=== PATIENT | male | born 1955 | race Caucasian/White ===

== ENCOUNTER → 2016-04-08 | Outpatient (CLI) | payer BC ==
[~2016-04-08] MED LIST: ACET325T96 PO; CHOL100027 PO; LPT40 PO; LSN/10125 PO; LVMIPEN SQ; METF1TAB53 PO; MULT-506 PO; OXYC-643 PO; WARF2TAB PO
--- NOTE | 2016-04-10 10:24 | DIAGNOSTIC IMAGING REPORT ---
LUMBAR SPINE 5 VIEWS HISTORY: LOW BACK PAIN COMPARISON: Lumbar spine 11/07/2013. FINDINGS: There is no fracture. Minimal dextroscoliosis of the lumbar spine. There is a right total hip arthroplasty. Mild osteoarthritis within the left hip. Degenerative changes within the bilateral sacral joints are again noted. 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 Large left lateral bridging osteophytes within the lumbar spine. Moderate right and severe left facet osteoarthritis at the L4-L5 and L5-S1 levels. Focal indentation along the superior endplates of the L1-L4 vertebral bodies remains unchanged. Moderate disc space narrowing at L3-L4. Severe disc space narrowing L4-L5 and L5-S1. There is mild disc space narrowing at L2-L3 and moderate disc space narrowing at L1-L2. This remains unchanged. There is 9 mm of anterolisthesis of L5 on S1. This is also unchanged. IMPRESSION: 1. No significant change compared to the prior study. 2. No acute fractures identified. 3. Stable grade II anterolisthesis of L5 on S1. 4. Advanced degenerative changes as described above. 5. Minimal dextroscoliosis. Electronically signed by: Lucas England M.D. 04/10/2016 10:22 AM Dictated Date/Time: 04/08/2016 5:50 PM
== END | disposition home or self-care (01) ==
LOC: C.RDSM 09:40
PROVIDERS: ATTEND Physical Medicine & Rehabilitation Sports Medicine
DX: M54.5 Low back pain (principal)

== ENCOUNTER → 2016-07-21 | Outpatient (CLI) | payer BC | END | disposition home or self-care (01) | LOC: C.RDSM 12:29 | PROVIDERS: ATTEND Physical Medicine & Rehabilitation Sports Medicine | DX: Z96.649 Presence of unspecified artificial hip joint (principal) ==

== ENCOUNTER → 2017-07-28 | Outpatient (CLI) | payer BC, OTHER ==
[~2017-07-28] MED LIST changes: +ACET-1693 PO; -ACET325T96 PO
== END | disposition home or self-care (01) ==
LOC: C.RDSM 13:55
PROVIDERS: ATTEND Physical Medicine & Rehabilitation Sports Medicine
DX: M16.0 Bilateral primary osteoarthritis of hip (principal); Z96.641 Presence of right artificial hip joint

== ENCOUNTER 2021-11-20 17:46 | Inpatient (IN) ==
--- NOTE | 2021-11-20 19:12 | XRay Report ---
XR chest 1V portable CLINICAL HISTORY: illness COMPARISON STUDY: Chest radiograph August 03, 2014. FINDINGS: Lung volumes are diminished. No pneumothorax or pleural effusion is present. There is mild cardiomegaly. Pulmonary vascular congestion is noted. No evidence for overt pulmonary edema. No conso lidation is identified. IMPRESSION: 1. Cardiomegaly with pulmonary vascular congestion. 2. Low lung volumes. No consolidation identified. ACT 112: Negative or not required by law. Electronically signed by: Shashi Moore M.D. 11/20/2021 7:11 PM
[2021-11-20 19:19] LABS: Basophils # (auto) 0.05 K/uL (0-0.2); Basophils % (auto) 0.5 %; Eosinophils # (auto) 0.37 K/uL (0-0.50); Hematocrit (blood only) 35.8 % (40.1-51.0); Hemoglobin 11.7 g/dl (14.0-18.0); Immature Granulocytes # (auto) 0.02 K/uL (0.00-0.02); Immature Granulocytes % (auto) 0.2 %; Lymphocytes # (auto) 1.66 K/uL (1.2-3.4); Lymphocytes % (auto) 17.9 %; Mean Corpuscular Hemoglobin 30.4 pg (25.0-34.0); Mean Corpuscular Hgb Conc 32.7 g/dL (32.0-36.0); Mean Platelet Volume 10.8 fL (9.4-12.4); Monocytes # (auto) 0.97 K/uL (0.24-0.82); Monocytes % (auto) 10.5 %; Neutrophils % (auto) 66.9 %; Platelet Count 248 K/uL (130-400); RDW Coefficient of Variation 13.4 % (11.5-14.5); RDW Standard Deviation 45.4 fL (36.4-46.3); Red Blood Count 3.85 M/uL (4.63-6.08); White Blood Count 9.27 K/ul (4.8-10.8)
[2021-11-20 19:38] LABS: Albumin Globulin Ratio 1.5 (0.9-2); Albumin Level 4.4 gm/dl (3.4-5.0); BUN Creatinine Ratio 25.4 (10-20); Bilirubin,Total 0.4 mg/dl (0.2-1.0); Calcium 9.2 mg/dl (8.5-10.1); Creatinine Clr Calc Pharmacy 34.4 ml/min; Est GFR (African American) 28.8 ml/min; Est GFR (Non-African American) 24.9 ml/min; Globulin 2.9 gm/dl (2.5-4.0); Potassium 5.2 mmol/L (3.5-5.1); Total Protein 7.3 gm/dl (6.0-8.3)
[2021-11-20] MEDS ORDERED: SODIUM CHLORIDE 0.9% 1000ML 1,000 ML IV ONE (20:38)
--- NOTE | 2021-11-20 20:50 | Emergency Department Note ---
Impression & Plan Acute kidney injury superimposed on CKD, Hyperkalemia ED Provider Note NAME: CHITRA PARKS AGE: 66 SEX: M : 1955 ARRIVES VIA: Walk-In INFORMANT: Patient, ED PROVIDER(S): Tim Hennessy DO CHIEF COMPLAINT: Elevated creatinine HPI: The patient is a 66-year-old male who presented to the emergency department for an evaluation of abnormal labs. The patient states he had routine labs done and was told to go to the emergency department because of elevated creatinine and elevated potassium. The patient denies having any fever. He has noticed some changes in his urine output. He denies having any back pain or abdominal pain. He denies having any abdominal distention or lower extremity swelling. The patient himself has had no significant changes to his medications recently. His blood sugar has been acceptable recently. The patient has been eating and drinking as usual. He is been compliant with his usual outpatient medications. ROS: See above HPI for pertinent positives & negatives. A total of 10 systems reviewed and were otherwise negative. PAST MEDICAL HISTORY: See Below PAST SURGICAL HISTORY: See Below FAMILY HISTORY: See Below SOCIAL HISTORY: See Below HOME MEDICATIONS: See Below ALLERGIES: See Below VITALS: See Below PHYSICAL EXAMINATION: GENERAL: Patient is awake alert in no acute distress patient is resting comfortably and showing no signs of anxiety EYES: The conjunctivae are clear. The pupils are round and reactive. EARS, NOSE, MOUTH AND THROAT: The nose is without any evidence of any deformity. NECK: The neck is nontender and supple. RESPIRATORY: Normal respiratory effort is noted there is no evidence of wheezing rhonchi or rales CARDIOVASCULAR: Regular rate and rhythm noted there no murmurs rubs or gallops normal S1 normal S2. GASTROINTESTINAL: The abdomen is soft. Abdomen is nontender. MUSCULOSKELETAL/EXTREMITIES: There is no evidence of gross deformity full range of motion is noted in the hips and shoulders. SKIN: Trace pedal edema was noted bilaterally. NEUROLOGIC: Patient is awake alert and oriented x3 MEDICAL DECISION MAKING: The patient is a 66-year-old male who presented to the emergency department for an evaluation of abnormal labs. The patient was found to have hyperkalemia with elevation in his creatinine. The patient does have a history of underlying renal insufficiency. He was treated with IV fluids in the emergency department. EKG did not show significant change from previous. I discussed patient's condition with the on-call [facility] hospitalist. They have agreed to evaluate the patient in the emergency department for further management disposition. Triage Nursing notes reviewed. Prior medical records reviewed Vital Signs: reviewed and remarkable for bradycardia. Differential diagnosis: Infection, dehydration, metabolic abnormality, hypo/hyperglycemia, electrolyte d isturbance, anemia, hypoxia, cardiac sources, intracerebral event, toxicologic, neurologic, as well as other pathologies. ER treatment provided: See below Diagnostics interpreted by me: ECG: EKG was obtained in the emergency department. My interpretation is sinus bradycardia 59 bpm. There is no ectopy. Right bundle branch block pattern was noted. This was compared to a tracing from August 03, 2014. No changes were noted. Cardiac Monitoring: An order was placed for continuous cardiac monitoring. The monitor shows a rate of 56 bpm with sinus bradycardia. Laboratory studies: As stated above and show below. Imaging studies: See below Consultation(s): I discussed this case with the on-call [facility] hospitalist. Past Med/Surg History Medical History CKD (chronic kidney disease), stage III Diabetes mellitus, type 2 Hyperlipidemia Hypertension Osteoarthritis Spinal stenosis Structural heart disease septal infarct, RBBB, LAD, sinus bradycardia on ECG 2021 and 2014 Surgical History History of colonoscopy History of total hip arthroplasty RT Hx of cataract extraction RIGHT. 02/29/2020. 2mg versed. no issues. 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 Beliefs That Will Affect Care: None Current Living Situation: Spouse Other Information That Helps Us Care for You: No Feels Safe at Home: Yes Safety Concerns: Feels Safe At This Time Assistive Devices: None Allergies Allergies Allergy/AdvReac Type Severity Reaction Status Date / Time No Known Allergies AdvReac Unknown Verified 03/07/20 06:19 Home Meds Home Medications Medication Instructions Recorded Confirmed amlodipine 10 mg tablet (Norvasc) 10 mg PO QAM 02/24/20 11/20/21 aspirin 325 mg tablet 325 mg PO QAM 02/24/20 11/20/21 atorvastatin 40 mg tablet 40 mg PO QAM 02/24/20 11/20/21 indapamide 2.5 mg tablet 2.5 mg PO QAM 02/24/20 11/20/21 insulin degludec 100 unit/mL 21 unit subcut QAM 02/24/20 11/20/21 subcutaneous solution (Tresiba U-100 Insulin) lisinopril 40 mg tablet 40 mg PO QAM 02/24/20 11/20/21 metformin 1,000 mg tablet 500 mg PO BID 02/24/20 11/20/21 multivitamin 1 tab PO QAM 02/24/20 11/20/21 terazosin 1 mg capsule 1 mg PO QAM 02/24/20 11/20/21 cholecalciferol (vitamin D3) 50 2,000 unit PO DAILY 11/20/21 11/20/21 mcg (2,000 unit) tablet (Vitamin D3) dulaglutide 1.5 mg/0.5 mL 1.5 mg subcut WK 11/20/21 11/20/21 subcutaneous pen injector (Trulicity) Results & Data (ED) Vital Signs Vital Signs - 24 hr 11/20/21 18:13 11/20/21 19:46 11/20/21 21:00 Temperature 36.4 C L Temperature Source Temporal Artery Scan Pulse Rate 70 Pulse Rate [Apical] 57 L 80 Pulse Rate from SpO2 Sensor Pulse Rhythm [Apical] Regular Regular Pulse Strength [Apical] Normal Normal Respiratory Rate 18 19 19 Respiratory Effort / Characteristics Non-Labored Spontaneous Non-Labored Non-Labored Respiratory Depth Normal Normal Normal Respiratory Pattern Regular Regular Regular Blood Pressure 114/62 Blood Pressure [Right Arm] 109/50 L Blood Pressure Mean 79 Blood Pressure Mean [Right Arm] 69 Blood Pressure Position Sitting Blood Pressure Position [Right Arm] Lying Lying Pulse Oximetry 92 94 99 Oxygen Delivery Method Room Air Room Air Room Air Sepsis Recent Fever Within 48 Hours No Sepsis New/Unexplained Change in Mental Status No Sepsis Action Taken by Nursing No Action Required 11/20/21:59 11/20/21 22:00 11/20/21 22:00 Temperature Temperature Source Pulse Rate 63 60 Pulse Rate [Apical] Pulse Rate from SpO2 Sensor 63 60 Pulse Rhythm [Apical] Pulse Strength [Apical] Respiratory Rate 22 17 Respiratory Effort / Characteristics Respiratory Depth Respiratory Pattern Blood Pressure 120/58 L Blood Pressure [Right Arm] Blood Pressure Mean 78 Blood Pressure Mean [Right Arm] Blood Pressure Position Blood Pressure Position [Right Arm] Pulse Oximetry 95 95 Oxygen Delivery Method Sepsis Recent Fever Within 48 Hours Sepsis New/Unexplained Change in Mental Status Sepsis Action Taken by [facility] Medications Current Medication List: was personally reviewed by me Laboratory Data Attestation: I reviewed the patient's lab results. Result diagrams: 11/21/21 06:32 11/21/21 06:32 Lab Results 11/20/21 11/20/21 11/20/21 Range/Units 19:05 19:05 20:19 WBC 9.27 (4.8-10.8) K/ul RBC 3.85 L (4.63-6.08) M/uL Hgb 11.7 L (14.0-18.0) g/dl Hct 35.8 L (40.1-51.0) % MCV 93.0 (80.0-100.0) fL MCH 30.4 (25.0-34.0) pg MCHC 32.7 (32.0-36.0) g/dL RDW Std Deviation 45.4 (36.4-46.3) fL RDW Coeff of Tuan 13.4 (11.5-14.5) % Plt Count 248 (130-400) K/uL MPV 10.8 (9.4-12.4) fL Immature Gran % (Auto) 0.2 % Neut % (Auto) 66.9 % Lymph % (Auto) 17.9 % [place] % (Auto) 10.5 % Eos % (Auto) 4.0 % Baso % (Auto) 0.5 % Neut # (Auto) 6.20 (1.4-6.5) K/uL Lymph # (Auto) 1.66 (1.2-3.4) K/uL [place] # (Auto) 0.97 H (0.24-0.82) K/uL Eos # (Auto) 0.37 (0-0.50) K/uL Baso # (Auto) 0.05 (0-0.2) K/uL Immature Gran # (Auto) 0.02 (0.00-0.02) K/uL Sodium 139 138 (136-145) mmol/L Potassium 5.2 H 5.1 (3.5-5.1) mmol/L Chloride 108 H 107 (98-107) mmol/L Carbon Dioxide 21 20 L (21-32) mmol/L Anion Gap 10 11 (3-11) BUN 65 H 67 H (6-23) mg/dl Creatinine 2.56 H 2.53 H (0.6-1.4) mg/dl Est Cr Clr Drug Dosing 34.4 34.8 ml/min Est GFR ( Amer) 28.8 29.3 ml/min Est GFR (Non-Af Amer) 24.9 25.2 ml/min BUN/Creatinine Ratio 25.4 H 26.5 H (10-20) Glucose 83 71 (70-99(Fasting)) mg/dl Calcium 9.2 9.2 (8.5-10.1) mg/dl Magnesium 2.2 (1.7-2.4) mg/dl Total Bilirubin 0.4 (0.2-1.0) mg/dl AST 27 (13-39) U/L ALT 19 (7-52) U/L Alkaline Phosphatase 77 (34-104) U/L Total Creatine Kinase 460 H (30-223) U/L Total Protein 7.3 (6.0-8.3) gm/dl Albumin 4.4 (3.4-5.0) gm/dl Globulin 2.9 (2.5-4.0) gm/dl Albumin/Globulin Ratio 1.5 (0.9-2) Urine Color Urine Appearance (Clear) Urine pH (4.5-7.5) Ur Specific Duff (1.000-1.030) Urine Protein (Negative) Urine Glucose (UA) (Negative) Urine Ketones (Negative) Urine Blood (Negative) Urine Nitrite (Negative) Urine Bilirubin (Negative) Urine Urobilinogen (Negative) Ur Leukocyte Esterase (Negative) SARS-CoV-2, RNA, NAAT (NEGATIVE) 11/20/21 11/20/21 Range/Units 21:28 22:25 WBC (4.8-10.8) K/ul RBC (4.63-6.08) M/uL Hgb (14.0-18.0) g/dl Hct (40.1-51.0) % MCV (80.0-100.0) fL MCH (25.0-34.0) pg MCHC (32.0-36.0) g/dL RDW Std Deviation (36.4-46.3) fL RDW Coeff of Tuan (11.5-14.5) % Plt Count (130-400) K/uL MPV (9.4-12.4) fL Immature Gran % (Auto) % Neut % (Auto) % Lymph % (Auto) % [place] % (Auto) % Eos % (Auto) % Baso % (Auto) % Neut # (Auto) (1.4-6.5) K/uL Lymph # (Auto) (1.2-3.4) K/uL [place] # (Auto) (0.24-0.82) K/uL Eos # (Auto) (0-0.50) K/uL Baso # (Auto) (0-0.2) K/uL Immature Gran # (Auto) (0.00-0.02) K/uL Sodium (136-145) mmol/L Potassium (3.5-5.1) mmol/L Chloride (98-107) mmol/L Carbon Dioxide (21-32) mmol/L Anion Gap (3-11) BUN (6-23) mg/dl Creatinine (0.6-1.4) mg/dl Est Cr Clr Drug Dosing ml/min Est GFR ( Amer) ml/min Est GFR (Non-Af Amer) ml/min BUN/Creatinine Ratio (10-20) Glucose (70-99(Fasting)) mg/dl Calcium (8.5-10.1) mg/dl Magnesium (1.7-2.4) mg/dl Total Bilirubin (0.2-1.0) mg/dl AST (13-39) U/L ALT (7-52) U/L Alkaline Phosphatase (34-104) U/L Total Creatine Kinase (30-223) U/L Total Protein (6.0-8.3) gm/dl Albumin (3.4-5.0) gm/dl Globulin (2.5-4.0) gm/dl Albumin/Globulin Ratio (0.9-2) Urine Color Yellow Urine Appearance Clear (Clear) Urine pH 5.0 (4.5-7.5) Ur Specific Duff 1.012 (1.000-1.030) Urine Protein Negative (Negative) Urine Glucose (UA) Negative (Negative) Urine Ketones Negative (Negative) Urine Blood Negative (Negative) Urine Nitrite Negative (Negative) Urine Bilirubin Negative (Negative) Urine Urobilinogen Negative (Negative) Ur Leukocyte Esterase Negative (Negative) SARS-CoV-2, RNA, NAAT NEGATIVE (NEGATIVE) Administered Medications Heparin Sodium (Porcine) (Heparin Sod 5,000 Unit/0.5 Ml Vial) 5,000 units SQ Q8 SOHAN Stop: 12/21/21 05:59 Last Admin: 11/21/21 06:13 Dose: 5,000 units Documented By: JUDY Insulin Aspart (Insulin Aspart Per Unit) 0 units SC ACHS SOHAN Stop: 12/21/21 01:11 Last Admin: 11/21/21 08:04 Dose: 1 units Documented By: MARYCRUZ Co-signed By: JOSE J Admin: 11/21/21 02:11 Dose: 1 units Documented By: JAMILAH Co-signed By: JUDITH Insulin Glargine (Lantus Per Unit Charge) 15 units SQ QAM SOHAN Stop: 12/21/21 08:59 Last Admin: 11/21/21 08:19 Dose: 15 units Documented By: MARYCRUZ Co-signed By: JOSE J Discontinued Medications Dextrose (Dextrose 50% 50 Ml Syringe) 50 ml IV NOW ONE Stop: 11/20/21 21:16 Last Admin: 11/20/21 21:38 Dose: 50 ml Documented By: GIANNA Sodium Chloride (Nss 1000ml) 1,000 mls @ 999 mls/hr IV .Q1H1M ONE Stop: 11/20/21 21:38 Last Infusion: 11/21/21 00:56 Dose: 0 mls/hr Documented By: Admin: 11/20/21 23:42 Dose: 999 mls/hr Documented By: JAMILAH Albumin Human (Albumin 25% 100 Ml) 25 gm in 100 mls @ 50 mls/hr IV ONE ONE Stop: 11/20/21 23:14 Last Infusion: 11/20/21 23:44 Dose: 0 mls/hr Documented By: Admin: 11/20/21 21:38 Dose: 50 mls/hr Documented By: GIANNA Insulin Human Regular 5 units/ (Syringe) 5 mls @ 30 mls/min IV NOW ONE Stop: 11/20/21 21:16 Last Admin: 11/20/21 21:38 Dose: 30 mls/min Documented By: GIANNA Co-signed By: CRISTÓBAL Albumin Human (Albumin 25% 100 Ml) 25 gm in 100 mls @ 50 mls/hr IV ONE ONE Stop: 11/21/21 03:42 Last Infusion: 11/21/21 04:07 Dose: 0 mls/hr Documented By: Admin: 11/21/21 02:07 Dose: 50 mls/hr Documented By: JAMILAH Imaging Data Radiologist's Impression: Chest X-Ray 11/20/21 18:16 XR chest 1V portable CLINICAL HISTORY: illness COMPARISON STUDY: Chest radiograph August 03, 2014. FINDINGS: Lung volumes are diminished. No pneumothorax or pleural effusion is p resent. There is mild cardiomegaly. Pulmonary vascular congestion is noted. No evidence for overt pulmonary edema. No consolidation is identified. IMPRESSION: 1. Cardiomegaly with pulmonary vascular congestion. 2. Low lung volumes. No consolidation identified. ACT 112: Negative or not required by law. Electronically signed by: Shashi Moore M.D. 11/20/2021 7:11 PM Discharge Plan Visit Data Chief Complaint: Abnormal Labs/Diagnostic Testing Stated Complaint: ABNORMAL LABS ED Provider: Tim Hennessy Discharge Problem: Acute kidney injury superimposed on CKD, Hyperkalemia Patient Disposition: Admitted As Inpatient Discharge Instructions Interventions: ED Discharge Assessment Last Done: 11/21/21 01:11
[2021-11-20] MEDS ORDERED: NovoLIN-R INSULIN PER UNIT CHARGE IV STA (20:56)
[2021-11-20 20:58] LABS: Magnesium 2.2 mg/dl (1.7-2.4)
[2021-11-20] MEDS ORDERED: ALBUMIN 25% 100 mL 25 GM/100 ML VIAL IV ONE (21:15)
[2021-11-20] MEDS ORDERED: INSULIN HUMAN REGULAR PER UNIT 5 UNITS in SYRINGE 4.95 ML IV ONE (21:15)
[2021-11-20] MEDS ORDERED: DEXTROSE 50% 50 ML SYRINGE IV ONE (21:15)
--- NOTE | 2021-11-20 21:19 | History & Physical Report ---
Date of Service November 20, 2021 Assessment & Plan (1) Acute kidney injury superimposed on CKD: (2) Hyperkalemia: (3) CKD (chronic kidney disease), stage III: (4) Diabetes mellitus, type 2: (5) Hypertension: (6) Hyperlipidemia: Plan: HPI, PMH, PE, med rec completed by Caren Hall PA-C. Assessment and Plan per Dr Sarmiento. See addendum History of Present Illness Chief Complaint: Abnormal labs Primary Care Provider: Oniel Resendez MD Patient is 66-year-old male with PMH DM II, CKD III, HTN presented to ER for abnormal outpatient labs. Patient had routine outpatient labs drawn 11/19/2021 with K: 5.9, BUN: 54, creatinine: 2.4. Patient denies any symptoms. Denies fever/chills, diaphoresis, N/V/D/C, JIMENEZ, dizziness, syncope, vision changes, neck pain, CP, SOB, orthopnea, palpitations, cough, sore throat, choking, otalgia, rhinorrhea, abdominal pain, paresthesias, weakness, extremity weakness, ext remity edema, rashes, urinary symptoms. Allergies Allergy/AdvReac Type Severity Reaction Status Date / Time No Known Allergies AdvReac Unknown Verified 03/07/20 06:19 Home Medications Medication Instructions Recorded Confirmed Type amlodipine 10 mg tablet (Norvasc) 10 mg PO QAM 02/24/20 11/20/21 History aspirin 325 mg tablet 325 mg PO QAM 02/24/20 11/20/21 History atorvastatin 40 mg tablet 40 mg PO QAM 02/24/20 11/20/21 History indapamide 2.5 mg tablet 2.5 mg PO QAM 02/24/20 11/20/21 History insulin degludec 100 unit/mL 21 unit subcut QAM 02/24/20 11/20/21 History subcutaneous solution (Tresiba U-100 Insulin) lisinopril 40 mg tablet 40 mg PO QAM 02/24/20 11/20/21 History metformin 1,000 mg tablet 500 mg PO BID 02/24/20 11/20/21 History multivitamin 1 tab PO QAM 02/24/20 11/20/21 History terazosin 1 mg capsule 1 mg PO QAM 02/24/20 11/20/21 History cholecalciferol (vitamin D3) 50 2,000 unit PO DAILY 11/20/21 11/20/21 History mcg (2,000 unit) tablet (Vitamin D3) dulaglutide 1.5 mg/0.5 mL 1.5 mg subcut WK 11/20/21 11/20/21 History subcutaneous pen injector (Trulicashley) Past Med/Surg History Medical History (Updated 11/20/21 @ 21:46 by Caren Hall PA-C) CKD (chronic kidney disease), stage III Diabetes mellitus, type 2 Hyperlipidemia Hypertension Osteoarthritis Spinal stenosis Surgical History History of colonoscopy History of total hip arthroplasty RT Hx of cataract extraction RIGHT. 02/29/2020. 2mg versed. no issues. 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 Beliefs That Will Affect Care: None Current Living Situation: Spouse Other Information That Helps Us Care for You: No Feels Safe at Home: Yes Safety Concerns: Feels Safe At This Time Assistive Devices: None Review of Systems Review of Systems: All systems reviewed & are unremarkable except as noted in HPI & below Physical Exam Physical Exam: General: no distress, obese Head: normocephalic, atraumatic Eyes: conjunctiva non-injected, anicteric ENT: normal inspection external ears, nose, mucous membranes moist Neck: supple, trachea midline, non-tender Lungs: clear, no respiratory distress, no wheezing/rhonchi/rales CV: RRR, no murmur, no JVD, no pretibial edema Abd: protuberant, normal BS, soft, non-tender Ext: no cyanosis, no calf tenderness Neuro: A&O x 3, no focal deficits noted, normal affect Skin: warm, dry Results & Data Results & Data ([facility]) Vital Signs (Past 12 Hours) Vital Signs Temp Pulse Resp BP Pulse Ox O2 Del Method 11/20/21 18:13 36.4 C L 70 18 114/62 92 Room Air Laboratory Results Short CBC 11/20/21 Range/Units 19:05 WBC 9.27 (4.8-10.8) K/ul Hgb 11.7 L (14.0-18.0) g/dl Hct 35.8 L (40.1-51.0) % Plt Count 248 (130-400) K/uL BMP 11/20/21 19:05 Sodium 139 Potassium 5.2 H Chloride 108 H Carbon Dioxide 21 BUN 65 H Creatinine 2.56 H Glucose 83 Calcium 9.2 Liver Function 11/20/21 Range/Units 19:05 Total Bilirubin 0.4 (0.2-1.0) mg/dl AST 27 (13-39) U/L ALT 19 (7-52) U/L Alkaline Phosphatase 77 (34-104) U/L Albumin 4.4 (3.4-5.0) gm/dl Diagnostic Findings Chest X-Ray 11/20/21 18:16 XR chest 1V portable CLINICAL HISTORY: illness COMPARISON STUDY: Chest radiograph August 03, 2014. FINDINGS: Lung volumes are diminished. No pneumothorax or pleural effusion is present. There is mild cardiomegaly. Pulmonary vascular congestion is noted. No evidence for overt pulmonary edema. No consolidation is identified. IMPRESSION: 1. Cardiomegaly with pulmonary vascular congestion. 2. Low lung volumes. No consolidation identified. ACT 112: Negative or not required by law. Electronically signed by: Shashi Moore M.D. 11/20/2021 7:11 PM Supervising Physician Co-Signing Physician Notes IM ATTENDING : Patient seen and examined. History obtained from patient, , and records. Preceding documentation by Ms. Caren Hall PA-C reviewed. 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 IV insulin 1 dose for hyperkalemia Nephrology consult Re: ARF on CKD; recurrent hyperkalemia on outpatient blood work Hold home diuretic and DINESH inhibitor until patient seen by Nephrology. Basal bolus insulin, ISS BG goal 1 10-1 40, carb count coverage, update hemoglobin A1c DVT prophylaxis with heparin subcu Full code Patient requesting updates from providers. Ms. Cate Aldana, contact #[phone]. Text document was generated using [employer] voice recognition software. It may contain grammatical or spelling errors. Kindly contact undersigned for clarification of any documentation item in question.
[2021-11-20 22:33] LABS: Appearance Urine Clear (Clear); Bilirubin Urine Negative (Negative); Blood Urine Negative (Negative); Color Urine Yellow; Glucose Urine UA Negative (Negative); Ketones Urine Negative (Negative); Leukocyte Esterase Urine Negative (Negative); Nitrite Urine Negative (Negative); Protein Urine Negative (Negative); Specific Gravity Urine 1.012 (1.000-1.030); Urobilinogen Urine Negative (Negative)
[2021-11-21 00:15] LABS: BUN Creatinine Ratio 26.5 (10-20); Calcium 9.2 mg/dl (8.5-10.1); Creatinine Clr Calc Pharmacy 34.8 ml/min; Est GFR (African American) 29.3 ml/min; Est GFR (Non-African American) 25.2 ml/min; Potassium 5.1 mmol/L (3.5-5.1)
[2021-11-21 00:30] LABS: Thyroid Stimulating Hormone 6.775 uIu/ml (0.300-4.500)
[2021-11-21] MEDS ORDERED: GLUCOSE 10 TAB/TUBE PO PRN (01:12)
[2021-11-21] MEDS ORDERED: GLUCAGON FOR INJ 1 MG VIAL SQ PRN (01:12)
[2021-11-21] MEDS ORDERED: PROMETHAZINE HCL 12.5 MG in SODIUM CHLORIDE 0.9% 50 ML IV PRN (01:12)
[2021-11-21] MEDS ORDERED: traMADol HCL 50 MG TABLET PO PRN (01:12)
[2021-11-21] MEDS ORDERED: ACETAMINOPHEN 325 MG TAB PO PRN (01:12)
[2021-11-21] MEDS ORDERED: CARBOHYDRATES FOR HYPOGLYCEMIA PO PRN (01:12)
[2021-11-21] MEDS ORDERED: GLUCOSE 40% GEL 15 GM TUBE PO PRN (01:12)
[2021-11-21] MEDS ORDERED: DEXTROSE 50% 50 ML SYRINGE IV PRN (01:12)
[2021-11-21 01:28] LABS: T4 Free Thyroxine 0.73 ng/dl (0.61-1.60)
[2021-11-21] MEDS ORDERED: ALBUMIN 25% 100 mL 25 GM/100 ML VIAL IV ONE (01:43)
[2021-11-21] MEDS: INSULIN ASPART PER UNIT SC SCH ×3 (02:11→12:26)
[2021-11-21] MEDS: HEPARIN SOD 5,000 UNIT/0.5 ML VIAL SQ SCH ×2 (06:13→13:11)
--- NOTE | 2021-11-21 06:39 | Nephrology Consultation ---
Date of Consultation November 21, 2021 Assessment & Plan (1) Hyperkalemia: chronic issue-likely med related and presume RTA 4 from DM; as below; limits DINESH/ARB therapy which he though ulimately likely needs for risk reduction (2) Acute kidney injury superimposed on CKD: resolved w/ supportive care; stage 1 HORACE on CKD 3B w/ unknown proteinuria status. renal u/s and UA unremarkable. Also with chronic hyperkalemia Patient on full dose aspirin for no clear indication -lowered ASA to 81 mg daily and observe K -pls have dietary team give low K teaching -strongly recommend both nephro and cardiology (given presumed structural heart disease based on ECG findings and 2015 cardiology eval and relative bradycardia on no rate slowing agents) f/u as OP -nephro hospital d/c appt 4-6 wks after d/c -repeat BMP at pcp f/u -ok to resuem regular OP meds -target at least 64 oz daily water intake, more if out in hot weather -d/c on low K diet and cont low K diet now -d/c'd MVI -low threshold to add diuretics if can't control K (3) Structural heart disease: -strongly recommend OP cardiology eval d/t reasons above History of Present Illness Reason for Consultation: HORACE on CKD, hyperkalemia Requesting Physician: Dr Sarmiento Attending Physician: Huang Parker MD History of Present Illness 66 y/o M whom I'm asked to see for HORACE on CKD, hyperkalemia was admitted overnight after being sent to hospital for same. OP labs on 11/19 remarkable for K 5.9, creat 2.4. presenting K 5. he had 5 units IV insulin and 1LNS PMH includes DM II since 2013, CKD IIIB, HTN also since 2013, R hip surgery, L foot drop. No definitive CAD but preop by cardiology in 2014 found CAD probable and recommended routine OP cardiology f/u. pt has no OP nephro or cardiology care x > 5 years. No known hx of PVD or stroke. Pt feeling otherwise well > no n/v/d, no sob, no edema, no f/c, no new/worrisome voiding sx. at bedside; she is primary cook at home. His baseline creatinine is 2-2.4 since at least 2019; he has chronic hyperkalemia including several readings most recently in high 5's and one low 6s. Allergies Allergy/AdvReac Type Severity Reaction Status Date / Time No Known Allergies AdvReac Unknown Verified 03/07/20 06:19 Home Medications Medication Instructions Recorded Confirmed Type amlodipine 10 mg tablet (Norvasc) 10 mg PO QAM 02/24/20 11/20/21 History atorvastatin 40 mg tablet 40 mg PO QAM 02/24/20 11/20/21 History indapamide 2.5 mg tablet 2.5 mg PO QAM 02/24/20 11/20/21 History insulin degludec 100 unit/mL 21 unit subcut QAM 02/24/20 11/20/21 History subcutaneous solution (Tresiba U-100 Insulin) metformin 1,000 mg tablet 500 mg PO BID 02/24/20 11/20/21 History terazosin 1 mg capsule 1 mg PO QAM 02/24/20 11/20/21 History cholecalciferol (vitamin D3) 50 2,000 unit PO DAILY 11/20/21 11/20/21 History mcg (2,000 unit) tablet (Vitamin D3) dulaglutide 1.5 mg/0.5 mL 1.5 mg subcut WK 11/20/21 11/20/21 History subcutaneous pen injector (Trulicity) aspirin 81 mg tablet,delayed 81 mg PO QAM #30 tabs 11/21/21 Rx release Patient History Medical History CKD (chronic kidney disease), stage III Diabetes mellitus, type 2 Hyperlipidemia Hypertension Osteoarthritis Spinal stenosis Structural heart disease septal infarct, RBBB, LAD, sinus bradycardia on ECG 2021 and 2014 Surgical History History of colonoscopy History of total hip arthroplasty RT Hx of cataract extraction RIGHT. 02/29/2020. 2mg versed. no issues. Nasal polyps REMOVED Family History Sister Family hx of colon cancer Other No family history of adverse response to anesthesia Social History Smoking Status: Never smoker Second Hand Exposure: No; Do You Dip or Chew Tobacco: No; Tobacco Cessation Education Requested by Patient: No Hx Alcohol Use: No Hx Substance Use: No Preferred Language: Pakistani Communication Ability: Effective Contract Management Specialist Required: No Beliefs That Will Affect Care: None Current Living Situation: Spouse Other Information That Helps Us Care for You: No Feels Safe at Home: Yes Safety Concerns: Feels Safe At This Time Assistive Devices: None Review of Systems Review of Systems: All systems reviewed & are unremarkable except as noted in HPI & below Physical Exam Constitutional: well developed (muscular for age) and well nourished; no acute distress Eyes: EOM intact bilaterally ENMT: Ears: no external ear abnormality Nose: no external nose abnormality Mouth: + dry oral mucous membranes Neck: no nuchal rigidity Respiratory: normal respiratory effort Auscultation: + diminished lung sounds Cardiovascular: Rate/Rhythm: regular rhythm and + bradycardic Heart Sounds: + murmur Extremities: no edema Gastrointestinal (Abdomen): Inspection/Auscultation: normal bowel sounds Percussion/Palpation: abdomen soft; abdomen nontender Musculoskeletal: Extremities: strength 5/5 throughout Skin: no rashes, warm and dry Neurologic: diaz, fluent speech, no tremor Psychiatric: Orientation: oriented x 3 Speech: normal rate/rhythm/volume of speech Results & Data ([facility]) Vital Signs (Past 12 Hours) Vital Signs Temp Pulse Pulse Resp BP BP Pulse Ox 11/21/21 06:17 53 L 11/21/21 05:02 11/21/21 04:47 36.5 C 59 L 18 145/71 H 94 11/21/21 03:18 59 L 21 120/66 94 11/21/21 02:00 58 L 20 95 11/21/21 01:00 60 16 106/69 94 11/21/21 01:00 106/69 11/21/21 00:00 52 L 12 122/59 L 93 11/20/21 23:42 53 L 10 L 105/65 92 11/20/21 23:42 53 L 12 105/65 92 11/20/21 22:00 60 17 95 11/20/21 22:00 120/58 L 11/20/21 21:59 63 22 95 11/20/21 21:00 80 19 99 11/20/21 19:46 57 L 19 109/50 L 94 O2 Del Method 11/21/21 06:17 09/01/22 05:02 Room Air 11/21/21 04:47 Room Air 11/21/21 03:18 11/21/21 02:00 11/21/21 01:00 11/21/21 01:00 11/21/21 00:00 11/20/21 23:42 11/20/21 23:42 Room Air 11/20/21 22:00 11/20/21 22:00 11/20/21 21:59 11/20/21 21:00 Room Air 11/20/21 19:46 Room Air Laboratory Results 11/21/21 06:32 11/21/21 06:32 UA bland Diagnostic Findings ECG reviewed > RBBB, septal infarct,LAD; no change since 2014 renal u/s > symmetrick 10 CM kidneys w/o stone, mass, obstructoin
--- NOTE | 2021-11-21 07:13 | Hospitalist Progress Note ---
Date of Service November 21, 2021 Assessment & Plan (1) Acute kidney injury superimposed on CKD: (2) Hyperkalemia: (3) CKD (chronic kidney disease), stage III: (4) Diabetes mellitus, type 2: (5) Hypertension: (6) Hyperlipidemia: Plan: ARF on CKD Hyperkalemia secondary to progressive kidney dysfunction, home lisinopril contributory IV insulin 1 dose for hyperkalemia given on admission Monitor creatinine/serum potassium response to IV albumin (preferred over crystalloid given pulmonary congestion CXR) Renal US obtained IMPRESSION: No acute abnormality, in particular no evidence of hydronephrosis. Nephrology consult Re: ARF on CKD; recurrent hyperkalemia on outpatient blood work Hold home diuretic and DINESH inhibitor until patient seen by Nephrology. Recommendations by nephrology -low potassium diet, dietitian also consulted. Hold lisinopril. Decrease aspirin to 81 mg. Stop multivitamin. Patient will need to follow-up with nephrology in about 4 weeks, and it is also recommended that patient follows up with cardiology. Hypertension, stable DM2 insulin requiring, well-controlled as of recent hemoglobin A1c of 6.30 March 2021 Basal bolus insulin, ISS BG goal 110-140, carb count coverage, current hemoglobin A1c 6.9% Chronic anemia secondary to CKD, hemoglobin at baseline Past tobacco abuse DVT prophylaxis with heparin subcu Full code Patient's - Ms. Cate Aldana, contact #[phone]. Admission and Anticipated Discharge Date Admission Date: November 20, 2021 Subjective Pt seen in follow up of HORACE on CKD, hyperkalemia Cr down to 2 this AM Patient is lying in bed, in no acute distress, patient's is at the bedside Overall he reports feeling well. 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 Denies fevers, chills, chest pain, shortness of breath, abdominal pain, nausea or vomiting. He was told to present to the ED due to abnormal labs. Reports he has not seen organic chemist in several years. Nephrology consulted Review of Systems Review of Systems: All systems reviewed & are unremarkable except as noted in Subjective Physical Exam Physical Exam: General: obese M, in NAD, pleasant Head: normocephalic, atraumatic Eyes: conjunctiva non-injected, anicteric ENT: normal inspection external ears, nose, mucous membranes moist Neck: supple, thick Lungs: clear, no respiratory distress, no wheezing/rhonchi/rales CV: RRR, no murmur, no JVD, no pretibial edema Abd: normal BS, soft, obese, non-tender Ext: no calf tenderness, moves extremities Neuro: A&O x 3, answering questions appropriately, no facial asymmetry, speech fluent, moves extremities Skin: warm, dry Results & Data Results & Data ([facility]) Vital Signs (Past 12 Hours) Vital Signs Temp Pulse Pulse Resp BP BP Pulse Ox 11/21/21 06:17 53 L 11/21/21 05:02 11/21/21 04:47 36.5 C 59 L 18 145/71 H 94 11/21/21 03:18 59 L 21 120/66 94 11/21/21 02:00 58 L 20 95 11/21/21 01:00 60 16 106/69 94 11/21/21 01:00 106/69 11/21/21 00:00 52 L 12 122/59 L 93 11/20/21 23:42 53 L 10 L 105/65 92 11/20/21 23:42 53 L 12 105/65 92 11/20/21 22:00 60 17 95 11/20/21 22:00 120/58 L 11/20/21 21:59 63 22 95 11/20/21 21:00 80 19 99 11/20/21 19:46 57 L 19 109/50 L 94 O2 Del Method 11/21/21 06:17 11/21/21 05:02 Room Air 11/21/21 04:47 Room Air 11/21/21 03:18 11/21/21 02:00 11/21/21 01:00 11/21/21 01:00 11/21/21 00:00 11/20/21 23:42 11/20/21 23:42 Room Air 11/20/21 22:00 11/20/21 22:00 11/20/21 21:59 11/20/21 21:00 Room Air 11/20/21 19:46 Room Air Laboratory Results 11/21/21 11/20/21 11/20/21 Range/Units 02:03 23:23 22:25 WBC (4.8-10.8) K/ul RBC (4.63-6.08) M/uL Hgb (14.0-18.0) g/dl Hct (40.1-51.0) % MCV (80.0-100.0) fL MCH (25.0-34.0) pg MCHC (32.0-36.0) g/dL RDW Std Deviation (36.4-46.3) fL RDW Coeff of Tuan (11.5-14.5) % Plt Count (130-400) K/uL MPV (9.4-12.4) fL Immature Gran % (Auto) % Neut % (Auto) % Lymph % (Auto) % Barton % (Auto) % Eos % (Auto) % Baso % (Auto) % Neut # (Auto) (1.4-6.5) K/uL Lymph # (Auto) (1.2-3.4) K/uL Barton # (Auto) (0.24-0.82) K/uL Eos # (Auto) (0-0.50) K/uL Baso # (Auto) (0-0.2) K/uL Immature Gran # (Auto) (0.00-0.02) K/uL Sodium (136-145) mmol/L Potassium (3.5-5.1) mmol/L Chloride (98-107) mmol/L Carbon Dioxide (21-32) mmol/L Anion Gap (3-11) BUN (6-23) mg/dl Creatinine (0.6-1.4) mg/dl Est Cr Clr Drug Dosing ml/min Est GFR ( Amer) ml/min Est GFR (Non-Af Amer) ml/min BUN/Creatinine Ratio (10-20) Glucose (70-99(Fasting)) mg/dl POC Glucose 160 H (70-99) mg/dl Calcium (8.5-10.1) mg/dl Magnesium (1.7-2.4) mg/dl Total Bilirubin (0.2-1.0) mg/dl AST (13-39) U/L ALT (7-52) U/L Alkaline Phosphatase (34-104) U/L Total Creatine Kinase (30-223) U/L Total Protein (6.0-8.3) gm/dl Albumin (3.4-5.0) gm/dl Globulin (2.5-4.0) gm/dl Albumin/Globulin Ratio (0.9-2) TSH 6.775 H (0.300-4.500) uIu/ml Free T4 0.73 (0.61-1.60) ng/dl Urine Color Yellow Urine Appearance Clear (Clear) Urine pH 5.0 (4.5-7.5) Ur Specific [place] 1.012 (1.000-1.030) Urine Protein Negative (Negative) Urine Glucose (UA) Negative (Negative) Urine Ketones Negative (Negative) Urine Blood Negative (Negative) Urine Nitrite Negative (Negative) Urine Bilirubin Negative (Negative) Urine Urobilinogen Negative (Negative) Ur Leukocyte Esterase Negative (Negative) SARS-CoV-2, RNA, NAAT (NEGATIVE) 11/20/21 11/20/21 11/20/21 Range/Units 21:28 20:19 19:05 WBC (4.8-10.8) K/ul RBC (4.63-6.08) M/uL Hgb (14.0-18.0) g/dl Hct (40.1-51.0) % MCV (80.0-100.0) fL MCH (25.0-34.0) pg MCHC (32.0-36.0) g/dL RDW Std Deviation (36.4-46.3) fL RDW Coeff of Tuan (11.5-14.5) % Plt Count (130-400) K/uL MPV (9.4-12.4) fL Immature Gran % (Auto) % Neut % (Auto) % Lymph % (Auto) % Barton % (Auto) % Eos % (Auto) % Baso % (Auto) % Neut # (Auto) (1.4-6.5) K/uL Lymph # (Auto) (1.2-3.4) K/uL Barton # (Auto) (0.24-0.82) K/uL Eos # (Auto) (0-0.50) K/uL Baso # (Auto) (0-0.2) K/uL Immature Gran # (Auto) (0.00-0.02) K/uL Sodium 138 139 (136-145) mmol/L Potassium 5.1 5.2 H (3.5-5.1) mmol/L Chloride 107 108 H (98-107) mmol/L Carbon Dioxide 20 L 21 (21-32) mmol/L Anion Gap 11 10 (3-11) BUN 67 H 65 H (6-23) mg/dl Creatinine 2.53 H 2.56 H (0.6-1.4) mg/dl Est Cr Clr Drug Dosing 34.8 34.4 ml/min Est GFR ( Amer) 29.3 28.8 ml/min Est GFR (Non-Af Amer) 25.2 24.9 ml/min BUN/Creatinine Ratio 26.5 H 25.4 H (10-20) Glucose 71 83 (70-99(Fasting)) mg/dl POC Glucose (70-99) mg/dl Calcium 9.2 9.2 (8.5-10.1) mg/dl Magnesium 2.2 (1.7-2.4) mg/dl Total Bilirubin 0.4 (0.2-1.0) mg/dl AST 27 (13-39) U/L ALT 19 (7-52) U/L Alkaline Phosphatase 77 (34-104) U/L Total Creatine Kinase 460 H (30-223) U/L Total Protein 7.3 (6.0-8.3) gm/dl Albumin 4.4 (3.4-5.0) gm/dl Globulin 2.9 (2.5-4.0) gm/dl Albumin/Globulin Ratio 1.5 (0.9-2) TSH (0.300-4.500) uIu/ml Free T4 (0.61-1.60) ng/dl Urine Color Urine Appearance (Clear) Urine pH (4.5-7.5) Ur Specific [place] (1.000-1.030) Urine Protein (Negative) Urine Glucose (UA) (Negative) Urine Ketones (Negative) Urine Blood (Negative) Urine Nitrite (Negative) Urine Bilirubin (Negative) Urine Urobilinogen (Negative) Ur Leukocyte Esterase (Negative) SARS-CoV-2, RNA, NAAT NEGATIVE (NEGATIVE) 11/20/21 Range/Units 19:05 WBC 9.27 (4.8-10.8) K/ul RBC 3.85 L (4.63-6.08) M/uL Hgb 11.7 L (14.0-18.0) g/dl Hct 35.8 L (40.1-51.0) % MCV 93.0 (80.0-100.0) fL MCH 30.4 (25.0-34.0) pg MCHC 32.7 (32.0-36.0) g/dL RDW Std Deviation 45.4 (36.4-46.3) fL RDW Coeff of Tuan 13.4 (11.5-14.5) % Plt Count 248 (130-400) K/uL MPV 10.8 (9.4-12.4) fL Immature Gran % (Auto) 0.2 % Neut % (Auto) 66.9 % Lymph % (Auto) 17.9 % Barton % (Auto) 10.5 % Eos % (Auto) 4.0 % Baso % (Auto) 0.5 % Neut # (Auto) 6.20 (1.4-6.5) K/uL Lymph # (Auto) 1.66 (1.2-3.4) K/uL Barton # (Auto) 0.97 H (0.24-0.82) K/uL Eos # (Auto) 0.37 (0-0.50) K/uL Baso # (Auto) 0.05 (0-0.2) K/uL Immature Gran # (Auto) 0.02 (0.00-0.02) K/uL Sodium (136-145) mmol/L Potassium (3.5-5.1) mmol/L Chloride (98-107) mmol/L Carbon Dioxide (21-32) mmol/L Anion Gap (3-11) BUN (6-23) mg/dl Creatinine (0.6-1.4) mg/dl Est Cr Clr Drug Dosing ml/min Est GFR ( Amer) ml/min Est GFR (Non-Af Amer) ml/min BUN/Creatinine Ratio (10-20) Glucose (70-99(Fasting)) mg/dl POC Glucose (70-99) mg/dl Calcium (8.5-10.1) mg/dl Magnesium (1.7-2.4) mg/dl Total Bilirubin (0.2-1.0) mg/dl AST (13-39) U/L ALT (7-52) U/L Alkaline Phosphatase (34-104) U/L Total Creatine Kinase (30-223) U/L Total Protein (6.0-8.3) gm/dl Albumin (3.4-5.0) gm/dl Globulin (2.5-4.0) gm/dl Albumin/Globulin Ratio (0.9-2) TSH (0.300-4.500) uIu/ml Free T4 (0.61-1.60) ng/dl Urine Color Urine Appearance (Clear) Urine pH (4.5-7.5) Ur Specific [place] (1.000-1.030) Urine Protein (Negative) Urine Glucose (UA) (Negative) Urine Ketones (Negative) Urine Blood (Negative) Urine Nitrite (Negative) Urine Bilirubin (Negative) Urine Urobilinogen (Negative) Ur Leukocyte Esterase (Negative) SARS-CoV-2, RNA, NAAT (NEGATIVE) Medications Administered Current Inpatient Medications Acetaminophen (Acetaminophen 325 Mg Tab) 650 mg PO Q4H PRN PRN Reason: Pain or Fever Stop: 12/21/21 01:11 Amlodipine Besylate (Amlodipine Besylate 5 Mg Tab) [facility] [place] Stop: 12/21/21 08:59 Last Admin: 11/21/21 10:26 Dose: 10 mg Aspirin (Aspirin 81 Mg Ectab) 81 mg PO QAM [facility] Stop: 12/22/21 08:59 Atorvastatin Calcium (Atorvastatin 40 Mg Tab) 40 mg PO QAM [facility] Stop: 12/21/21 08:59 Last Admin: 11/21/21 10:26 Dose: 40 mg Dextrose (Dextrose 50% 50 Ml Syringe) 25 - 50 ml IV UD PRN; Protocol PRN Reason: Hypoglycemia Protocol Stop: 12/21/21 01:11 Glucagon (Glucagon For Inj 1 Mg Vial) 1 mg SQ UD PRN; Protocol PRN Reason: Hypoglycemia Protocol Stop: 12/21/21 01:11 Glucose (Glucose 40% Gel 15 Gm Tube) 15 - 30 gm PO UD PRN; Protocol PRN Reason: Hypoglycemia Protocol Stop: 12/21/21 01:11 Glucose (Glucose 10 Tab/Tube) 4 - 8 tab PO UD PRN; Protocol PRN Reason: Hypoglycemia Treatment Stop: 12/21/21 01:11 Heparin Sodium (Porcine) (Heparin Sod 5,000 Unit/0.5 Ml Vial) 5,000 units SQ Q8 [facility] Stop: 12/21/21 05:59 Last Admin: 11/21/21 06:13 Dose: 5,000 units Promethazine HCl 12.5 mg/ (Sodium Chloride) 50.5 mls @ 202 mls/hr IV Q6H PRN PRN Reason: Nausea And Vomiting Stop: 12/21/21 01:11 Insulin Aspart (Insulin Aspart Per Unit) 0 units SC ACHS [facility] Stop: 12/21/21 01:11 Last Admin: 11/21/21 08:04 Dose: 1 units Insulin Glargine (Lantus Per Unit Charge) 15 [facility] [place] Stop: 12/21/21 08:59 Last Admin: 11/21/21 08:19 Dose: 15 units Miscellaneous (Carbohydrates For Hypoglycemia ) 15 - 30 gm PO UD PRN PRN Reason: Hypoglycemia Protocol Stop: 12/21/21 01:11 Terazosin HCl (Terazosin Hcl 1 Mg Cap) 1 [facility] [place] Stop: 12/21/21 08:59 Last Admin: 11/21/21 10:26 Dose: 1 mg Tramadol HCl (Tramadol Hcl 50 Mg Tablet) 25 - 50 mg PO Q4H PRN PRN Reason: Pain Stop: 12/21/21 01:11
[2021-11-21 07:20] LABS: Basophils # (auto) 0.04 K/uL (0-0.2); Basophils % (auto) 0.6 %; Eosinophils # (auto) 0.37 K/uL (0-0.50); Eosinophils % (auto) 5.3 %; Hematocrit (blood only) 34.5 % (40.1-51.0); Immature Granulocytes # (auto) 0.02 K/uL (0.00-0.02); Immature Granulocytes % (auto) 0.3 %; Lymphocytes # (auto) 1.17 K/uL (1.2-3.4); Lymphocytes % (auto) 16.9 %; Mean Corpuscular Hgb Conc 31.9 g/dL (32.0-36.0); Mean Platelet Volume 10.8 fL (9.4-12.4); Monocytes # (auto) 0.86 K/uL (0.24-0.82); Monocytes % (auto) 12.4 %; Neutrophils # (auto) 4.47 K/uL (1.4-6.5); Neutrophils % (auto) 64.5 %; Platelet Count 214 K/uL (130-400); RDW Coefficient of Variation 13.1 % (11.5-14.5); RDW Standard Deviation 44.7 fL (36.4-46.3); Red Blood Count 3.67 M/uL (4.63-6.08); White Blood Count 6.93 K/ul (4.8-10.8)
[2021-11-21 07:39] LABS: BUN Creatinine Ratio 29.7 (10-20); Calcium 8.7 mg/dl (8.5-10.1); Creatinine Clr Calc Pharmacy 43.6 ml/min; Est GFR (African American) 38.4 ml/min; Est GFR (Non-African American) 33.1 ml/min
--- NOTE | 2021-11-21 07:44 | Ultrasound Report ---
US renal/blad retro comp CLINICAL HISTORY: renal failure TECHNIQUE: Multiple sonographic real-time images of the kidneys and bladder were obtained. COMPARISON: None available at the time of this dictation. FINDINGS: The right kidney measures 10.2 cm in length, and the left kidney measures 10.3 cm in length. The right kidney is normal in size, contour, cortical thickness, and echogenicity. No hydronephrosis is identified. A cyst measuring 1 cm is seen on the right. No perinephric fluid collection is seen. The left kidney is normal in size, contour, cortical thickness and echogenicity. No hydronephrosis i s identified. No renal lesion is identified. No perinephric fluid collection is seen. The bladder is partially distended. No large intraluminal mass is seen. IMPRESSION: No acute abnormality, in particular no evidence of hydronephrosis. ACT 112: Negative or not required by law. Electronically signed by: Jaime Stephenson M.D. 11/21/2021 7:43 AM
[2021-11-21 08:49] LABS: Estimated Average Glucose 151 mg/dl; Hemoglobin A1C 6.9 % (4.5-5.6)
[2021-11-21] MEDS ORDERED: ATORVASTATIN 40 MG TAB PO SCH (09:00)
[2021-11-21] MEDS ORDERED: amLODIPine BESYLATE 5 MG TAB PO SCH (09:00)
[2021-11-21] MEDS ORDERED: ASPIRIN 325 MG ECTAB PO SCH (09:00)
[2021-11-21] MEDS ORDERED: LANTUS PER UNIT CHARGE SQ SCH (09:00)
[2021-11-21] MEDS ORDERED: MULTIVITAMIN TAB PO SCH (09:00)
[2021-11-21] MEDS ORDERED: TERAZOSIN HCL 1 MG CAP PO SCH (09:00)
--- NOTE | 2021-11-21 13:09 | Discharge Summary ---
Date of Service November 21, 2021 Admission HPI Per Admitting Provider Patient is 66-year-old male with PMH DM II, CKD III, HTN presented to ER for abnormal outpatient labs. Patient had routine outpatient labs drawn 11/19/2021 with K: 5.9, BUN: 54, creatinine: 2.4. Patient denies any symptoms. Denies fever/chills, diaphoresis, N/V/D/C, JIMENEZ, dizziness, syncope, vision changes, neck pain, CP, SOB, orthopnea, palpitations, cough, sore throat, choking, otalgia, rhinorrhea, abdominal pain, paresthesias, weakness, extremity weakness, extremity edema, rashes, urinary symptoms. Admission Exam Per Admitting Provider General: no distress, obese Head: normocephalic, atraumatic Eyes: conjunctiva non-injected, anicteric ENT: normal inspection external ears, nose, mucous membranes moist Neck: supple, trachea midline, non-tender Lungs: clear, no respiratory distress, no wheezing/rhonchi/rales CV: RRR, no murmur, no JVD, no pretibial edema Abd: protuberant, normal BS, soft, non-tender Ext: no cyanosis, no calf tenderness Neuro: A&O x 3, no focal deficits noted, normal affect Skin: warm, dry Principal Diagnosis Acute kidney injury, in the setting of chronic kidney disease, hyperkalemia Discharge Exam General: obese M, in NAD, pleasant Head: normocephalic, atraumatic Eyes: conjunctiva non-injected, anicteric ENT: normal inspection external ears, nose, mucous membranes moist Neck: supple, thick Lungs: clear, no respiratory distress, no wheezing/rhonchi/rales CV: RRR, no murmur, no JVD, no pretibial edema Abd: normal BS, soft, obese, non-tender Ext: no calf tenderness, moves extremities Neuro: A&O x 3, answering questions appropriately, no facial asymmetry, speech fluent, moves extremities Skin: warm, dry Discharge Data Allergies Allergy/AdvReac Type Severity Reaction Status Date / Time No Known Allergies AdvReac Unknown Verified 03/07/20 06:19 Consultations 11/20/21 20:50 ED Decision to Admit Stat 11/21/21 01:12 Consult Nephrology Routine Ordered Studies 11/21/21 01:12 US Renal Bladder [US renal/blad retro comp] Urgent FINDINGS: The right kidney measures 10.2 cm in length, and the left kidney measures 10.3 cm in length. The right kidney is normal in size, contour, cortical thickness, and echogenicity. No hydronephrosis is identified. A cyst measuring 1 cm is seen on the right. No perinephric fluid collection is seen. The left kidney is normal in size, contour, cortical thickness and echogenicity. No hydronephrosis is identified. No renal lesion is identified. No perinephric fluid collection is seen. The bladder is partially distended. No large intraluminal mass is seen. IMPRESSION: No acute abnormality, in particular no evidence of hydronephrosis. Hospital Course (1) Acute kidney injury superimposed on CKD: (2) Hyperkalemia: (3) CKD (chronic kidney disease), stage III: (4) Diabetes mellitus, type 2: (5) Hypertension: (6) Hyperlipidemia: ARF on CKD Hyperkalemia secondary to progressive kidney dysfunction, home lisinopril contributory IV insulin 1 dose for hyperkalemia given on admission Monitor creatinine/serum potassium response to IV albumin (preferred over crystalloid given pulmonary congestion CXR) Renal US obtained IMPRESSION: No acute abnormality, in particular no evidence of hydronephrosis. Nephrology consult Re: ARF on CKD; recurrent hyperkalemia on outpatient blood work Hold home diuretic and DINESH inhibitor until patient seen by Nephrology. Recommendations by nephrology -low potassium diet, dietitian also consulted. Hold lisinopril. Decrease aspirin to 81 mg. Stop multivitamin. Patient will need to follow-up with nephrology in about 4 weeks, and it is also recommended that patient follows up with cardiology. Hypertension, stable DM2 insulin requiring, well-controlled as of recent hemoglobin A1c of 6.30 March 2021 Basal bolus insulin, ISS BG goal 110-140, carb count coverage, current hemoglobin A1c 6.9% Chronic anemia secondary to CKD, hemoglobin at baseline Past tobacco abuse Total Time Total Time Spent Total Time Spent (In Minutes): 40 Discharge Plan Discharge Items Patient Disposition: Home - Self-Care Reason For Visit: HYPERKALEMIA, ARF CKD Discharge Diagnosis: Acute kidney injury, in the setting of chronic kidney disease, hyperkalemia Activity: Per Instructions section Non-emergency contact: Primary Care Provider and Human Resources Clerk Call non-emergency contact if: you have any medication questions and your symptoms worsen Follow-up/Referrals: Oniel Resendez MD [Primary Care Provider] - (Date & Time 11/29/2021 11:00 AM Provider Oniel Resendez III, MD Department [facility] ) Diet: Carb Consistent or DM2, Heart Healthy and Low Potassium (2gm) Addtl Attending Provider Instructions: Follow-up with your primary care doctor, the appointment was scheduled for you for November 29. You will also need to follow-up with nephrology, and it is recommended that you see a civil engineer's aide as well. Your aspirin dose was decreased to 81 mg daily. Stop taking lisinopril for now. Also stop taking multivitamin. Make sure to get familiar with low potassium diet, and adhere to it. Dietitian was consulted to discuss this with you in the hospital. If you are able to, monitor your blood pressure at home, and record your numbers. Discuss your numbers with your healthcare providers. Your blood pressure medications may need further adjustment. Pending Studies at Discharge: No Stand-Alone Forms: [facility] Cess[facility] Medications and DC Order Prescriptions: New aspirin 81 mg Tablet,Delayed Release (Dr/Ec) 81 mg PO QAM Qty: 30 0RF Continued atorvastatin 40 mg Tablet 40 mg PO QAM indapamide 2.5 mg Tablet 2.5 mg PO QAM terazosin 1 mg Capsule 1 mg PO QAM amlodipine [Norvasc] 10 mg Tablet 10 mg PO QAM metformin 1,000 mg Tablet 500 mg PO BID Rx Instructions: patient has only been taking once daily Tresiba U-100 Insulin 100 unit/mL Solution 21 unit SUBCUT QAM cholecalciferol (vitamin D3) [Vitamin D3] 50 mcg (2,000 unit) Tablet 2,000 unit PO DAILY Trulicity 1.5 mg/0.5 mL pen injector 1.5 mg SUBCUT WK Discontinued multivitamin Tablet 1 tab PO QAM aspirin 325 mg Tablet 325 mg PO QAM lisinopril 40 mg Tablet 40 mg PO QAM Discharge Orders: Discharge Order (Routine); Ordered 11/21/21 Ordered By: Huang Weiner/Other Patient Handouts: Managing Type 2 Diabetes Admission Data Admit Date/Time: 11/20/21 22:35 Attending Provider: Huang Parker Admit Provider: Donny Sarmiento Primary Care Provider: Oniel Resendez Other Providers: Donny Sarmiento ; Lexy Corona ; Chencho Iraheta ; Yelitza Nielson ; Anthony Candelaria ; Adriel Jones ; Alessandra Davison
--- NOTE | 2021-11-21 17:44 | Electrocardiogram Report ---
Test Reason : Blood Pressure : / mmHG Vent. Rate : 059 BPM Atrial Rate : 059 BPM P-R Int : 184 ms QRS Dur : 164 ms QT Int : 436 ms P-R-T Axes : 026 -60 006 degrees QTc Int : 431 ms Sinus bradycardia Left anterior fascicular block Right bundle branch block Abnormal ECG When compared with ECG of 03-AUG-2014 15:35, No significant change was found Confirmed by Valentin Zhou ([id number]) on 11/21/2021 5:43:34 PM Referred By: Oniel Resendez Confirmed By:Ravi Zhou
[2021-11-22] MEDS ORDERED: ASPIRIN 81 MG ECTAB PO SCH (09:00)
== END 2021-11-21 13:30 | disposition home or self-care (01) | DRG 684 ==
LOC: ED 17:46 → EDINP 22:35 → 2W 11-21 01:11